=== PATIENT | female | born 1975 | race African-American/Black ===

== ENCOUNTER 2021-02-25 21:22 | Emergency (ER) | payer BC ==
[~2021-02-25] VITALS: Ht 162.6 cm; Wt 77.3 kg
[~2021-02-25 21:22] MED LIST: BCP TD; PERCOCET 5/321 UDTAB PO
[2021-02-25 22:40] LABS: BASO % 0.5 % (0.0-2.0); EOS % 1.4 % (0.0-4.0); GRAN # 1.2 K/mm3 (1.4-6.5); GRAN % 55.4 % (42.2-75.2); LYMPH # 0.6 K/mm3 (1.2-3.4); LYMPH % 28.6 % (20.0-51.0); MEAN CELL VOLUME 87 fl (80.0-100.0); MEAN CORPUSCULAR HGB CONC 33 g/dl (33.0-37.0); MEAN PLATELET VOLUME 9.7 fl (7.4-10.4); MONO # 0.3 K/mm3 (0.1-0.6); MONO % 14.1 % (1.7-9.3); PLATELET COUNT 273 K/mm3 (130-400); RED BLOOD COUNT 3.26 M/mm3 (4.10-5.30); REDCELL DISTRIBUTION WIDTH-CV 12.5 % (11.5-14.5)
[2021-02-25 22:41] LABS: HEMATOCRIT 28.3 % (37.0-47.0); HEMOGLOBIN 9.2 g/dl (12.5-16.0); MEAN CORPUSCULAR HEMOGLOBIN 28 pg (27-31)
[2021-02-25 22:53] LABS: ALANINE AMINOTRANSFERASE 13 U/L (0-55); ALBUMIN 4.1 gm/dL (3.5-5.0); ALKALINE PHOSPHATASE 49 U/L (40-150); ANION GAP 12 mmol/L (7-16); AST,SGOT 18 U/L (5-34); BILIRUBIN,TOTAL 0.7 mg/dL (0.2-1.2); BLOOD UREA NITROGEN 14 mg/dL (7-19); CALCIUM 8.9 mg/dL (8.4-10.2); CARBON DIOXIDE 23 mmol/L (22-29); CHLORIDE 106 mmol/L (98-107); CREATININE, serum 0.78 mg/dL (0.57-1.11); GLUCOSE 95 mg/dL (70-99); POTASSIUM 3.7 mmol/L (3.5-4.5); SODIUM 141 mmol/L (136-145); TOTAL PROTEIN 8.4 gm/dL (6.2-8.1)
[2021-02-25 23:02] LABS: TROPONIN-I < 0.010 ng/mL (0.00-0.033)
[2021-02-26] MEDS ORDERED: PREDNISONE20 MG PO (00:26)
[2021-02-26 00:30] VITALS: BP 129/87; PULSE 83; TEMP 98.6
== END 2021-02-26 00:30 | disposition home or self-care (01) ==
LOC: COL.ER 21:22
PROVIDERS: Personal Emergency Response Attendant
DX: R06.02 Shortness of breath (principal); D64.9 Anemia, unspecified; J45.909 Unspecified asthma, uncomplicated; Z20.822 Contact with and (suspected) exposure to COVID-19
CPT/HCPCS: J7512

== ENCOUNTER 2022-05-06 16:31 | Emergency (ER) | payer SELFPAY ==
[~2022-05-06] VITALS: Ht 162.6 cm; Wt 77.7 kg
[~2022-05-06 16:31] MED LIST changes: +COZAAR 25MG25 MG/TAB PO; +COZAAR 50MG50 MG/TAB PO; +PREDNISONE20 MG PO
[2022-05-06 16:44] VITALS: TEMP 98.6
[2022-05-06 17:38] LABS: COLLECTION METHOD IN
[2022-05-06 17:46] LABS: BASO % 0.5 % (0.0-2.0); EOS # 0.1 K/mm3 (0.0-0.7); EOS % 1.3 % (0.0-4.0); GRAN # 2.3 K/mm3 (1.4-6.5); GRAN % 59.9 % (42.2-75.2); HEMOGLOBIN 10.6 g/dl (12.5-16.0); LYMPH % 24.9 % (20.0-51.0); MEAN CELL VOLUME 88 fl (80.0-100.0); MEAN CORPUSCULAR HEMOGLOBIN 30 pg (27-31); MEAN CORPUSCULAR HGB CONC 34 g/dl (33.0-37.0); MONO # 0.5 K/mm3 (0.1-0.6); MONO % 13.1 % (1.7-9.3); PLATELET COUNT 265 K/mm3 (130-400); RED BLOOD COUNT 3.53 M/mm3 (4.10-5.30); REDCELL DISTRIBUTION WIDTH-CV 11.9 % (11.5-14.5)
[2022-05-06 17:47] LABS: URINE APPEARANCE Clear (CLEAR/HAZY); URINE BLOOD TRACE-INTACT (NEGATIVE); URINE COLOR Yellow (YELLOW); URINE GLUCOSE Negative (NEGATIVE); URINE KETONE Negative (NEGATIVE); URINE NITRATE Negative (NEGATIVE); URINE PROTEIN(semi-quant) Negative (NEGATIVE); URINE UROBILINOGEN 0.2 E.U/dL (0.2-1.0)
[2022-05-06 17:50] LABS: HEMATOCRIT 31.2 % (37.0-47.0)
[2022-05-06 17:55] LABS: MUCOUS Present (NOT PRESENT); URINE BACTERIA None Seen /hpf (NONE SEEN)
[2022-05-06 18:03] LABS: ALANINE AMINOTRANSFERASE 13 U/L (0-55); ALBUMIN 3.9 gm/dL (3.5-5.0); ALKALINE PHOSPHATASE 45 U/L (40-150); ANION GAP 10 mmol/L (7-16); AST,SGOT 17 U/L (5-34); BILIRUBIN,TOTAL 0.4 mg/dL (0.2-1.2); BLOOD UREA NITROGEN 18 mg/dL (7-19); CALCIUM 9.9 mg/dL (8.4-10.2); CARBON DIOXIDE 24 mmol/L (22-29); CHLORIDE 103 mmol/L (98-107); CREATININE, serum 0.85 mg/dL (0.57-1.11); GLUCOSE 90 mg/dL (70-99); POTASSIUM 3.6 mmol/L (3.5-4.5); SODIUM 137 mmol/L (136-145); TOTAL PROTEIN 8.3 gm/dL (6.2-8.1)
[2022-05-06 18:26] LABS: TROPONIN-I < 0.010 ng/mL (0.00-0.033)
[2022-05-06 19:57] VITALS: BP 152/97; PULSE 97
== END 2022-05-06 20:05 | disposition home or self-care (01) ==
LOC: COL.ER 16:31
PROVIDERS: Emergency Medicine
DX: I10 Essential (primary) hypertension (principal); D64.9 Anemia, unspecified; D72.819 Decreased white blood cell count, unspecified; Z20.822 Contact with and (suspected) exposure to COVID-19; Z28.310 Unvaccinated for COVID-19

== ENCOUNTER 2022-05-31 20:06 | Emergency (ER) | payer SELFPAY ==
[~2022-05-31] VITALS: Ht 162.6 cm; Wt 77.7 kg
[2022-05-31 20:14] VITALS: TEMP 98
[2022-05-31 22:10] VITALS: BP 169/99; PULSE 64
== END 2022-05-31 22:10 | disposition home or self-care (01) ==
LOC: COL.ER 20:06
DX: M25.551 Pain in right hip (principal); M25.561 Pain in right knee; I10 Essential (primary) hypertension; Z79.899 Other long term (current) drug therapy; Z28.310 Unvaccinated for COVID-19